=== PATIENT | female | born 1980 ===

== ENCOUNTER → 2017-10-27 | Outpatient (CLI) | payer SELFPAY ==
--- NOTE | 2017-10-27 12:22 | Diagnostic Imaging Report ---
PROCEDURE: US abdomen complete. TECHNIQUE: Multiple real-time grayscale images were obtained over the abdomen in various projections. INDICATION: Right lower quadrant abdominal pain. The visualized pancreas is unremarkable. The liver is normal in size. No discrete liver mass is identified. The gallbladder contains a small approximately 6 mm mobile stone. No wall thickening or pericholecystic fluid is seen. No biliary duct dilatation is identified. The extrahepatic duct was obscured. The spleen is normal in size. Aorta and IVC are unremarkable. The right and left kidneys are unremarkable. There is no ascites. IMPRESSION: 1. Cholelithiasis without evidence of acute cholecystitis. Dictated by: Dictated on workstation # [id number]
== END ==
LOC: RAD 11:30
PROVIDERS: ATTEND Nurse Practitioner Family
DX: K80.20 Calculus of gallbladder without cholecystitis without obstruction (principal)
CPT/HCPCS: 76700

== ENCOUNTER → 2018-05-10 | Outpatient (CLI) | payer SELFPAY ==
--- NOTE | 2018-05-11 14:07 | Diagnostic Imaging Report ---
INDICATION: Hyperthyroidism. Patient was administered 200 ?Ci of I-123 orally and a 4 hour and 24-hour thyroid uptake as well as thyroid scan was performed. 4 hour uptake is 102% and 24 hour thyroid uptake is 94%. Thyroid scan shows homogeneous uptake throughout both lobes of the thyroid gland. No definite hot or cold nodules are seen. IMPRESSION: 1. Significantly elevated 24-hour thyroid uptake consistent with hyperthyroidism. No hot or cold nodules are seen. Dictated by: Dictated on workstation # [id number]
== END ==
LOC: CARD 11:29
PROVIDERS: ATTEND Nurse Practitioner Family
DX: E05.90 Thyrotoxicosis, unspecified without thyrotoxic crisis or storm (principal)
CPT/HCPCS: 78014

== ENCOUNTER 2018-07-27 11:10 | Outpatient (RCR) | payer SELFPAY | END 2018-09-12 | disposition home or self-care (01) | LOC: ONC 11:10 | PROVIDERS: ATTEND Radiology Radiation Oncology | DX: E05.90 Thyrotoxicosis, unspecified without thyrotoxic crisis or storm (principal) | CPT/HCPCS: 36415; 84703 ==

== ENCOUNTER → 2018-07-27 | Outpatient (CLI) | payer SELFPAY | LOC: CARD 11:46 | PROVIDERS: ATTEND Radiology Radiation Oncology | DX: E05.90 Thyrotoxicosis, unspecified without thyrotoxic crisis or storm (principal) | CPT/HCPCS: 79005 ==